=== PATIENT | male | born 1975 | race Caucasian/White ===

== ENCOUNTER 2018-03-03 02:28 | Emergency (ER) | END 2018-03-03 04:46 | disposition home or self-care (01) ==

== ENCOUNTER 2018-06-25 05:45 | Emergency (ER) | END 2018-06-25 07:25 | disposition home or self-care (01) ==

== ENCOUNTER 2019-05-25 00:26 | Emergency (ER) | payer MEDICARE, OTHER ==
[~2019-05-25] VITALS: Ht 185.4 cm; Wt 102.9 kg
[~2019-05-25 00:26] MED LIST: ARIP15TA3 PO; BUSP10TA2 PO; LORA-441 PO; PROP10TA6 ORAL
[2019-05-25 00:29] VITALS: Ht 185.4 cm; Wt 102.9 kg
[2019-05-25] MEDS ORDERED: OLANZAPINE 5 MG TAB PO ONE (03:00)
[2019-05-25 12:40] VITALS: BP 129/87; PULSE 98; RESP 18
== END 2019-05-25 12:35 | disposition left against medical advice (07) ==
LOC: E/R 00:26
DX: F20.9 Schizophrenia, unspecified (principal); Z59.0 Homelessness
CPT/HCPCS: 36415; 80053; 80307; 85025; 99284